=== PATIENT | female | born 2000 | race Caucasian/White ===

== ENCOUNTER 2023-03-14 11:52 | Emergency (ER) | payer OTHER ==
[~2023-03-14] VITALS: Ht 149.9 cm; Wt 77.0 kg
[2023-03-14 12:07] VITALS: BP 122/65; PULSE 83; TEMP 98.6; O2SAT 98
[2023-03-14] MEDS ORDERED: TETANUS, DIPHTHERIA, PERTUSSIS VAC/PF 0.5ML (>10YR OLD) IM ONE (14:00)
[2023-03-14 17:00] LABS: HEPATITIS B SURFACE AB < 3.1 mIU/mL (<10)
[2023-03-15 20:18] LABS: HEPATITIS C VIR.AB 0.08 INDEXVAL (0.00-0.80)
[2023-03-18 04:11] LABS: HIV SCREEN 4G Non Reactive (Non Reactive)
== END 2023-03-14 15:57 | disposition home or self-care (01) ==
LOC: ER 11:52
DX: O26.92 Pregnancy related conditions, unspecified, second trimester (principal); W46.0XXA Contact with hypodermic needle, initial encounter; Y93.89 Activity, other specified; Y92.89 Other specified places as the place of occurrence of the external cause; Y99.8 Other external cause status; Z3A.20 20 weeks gestation of pregnancy
CPT/HCPCS: 86706; 86803; 36415; 87389; 90715; 90471; 99283; Z7610